=== PATIENT | female | born 1995 | race Caucasian/White ===

== ENCOUNTER 2018-05-05 21:02 | Emergency (ER) | payer OTHER ==
[~2018-05-05] VITALS: Ht 160 cm; Wt 98.0 kg
[2018-05-05 21:27] VITALS: Ht 160 cm; Wt 98.0 kg
[2018-05-05 23:18] VITALS: BP 111/64
== END 2018-05-05 23:18 | disposition home or self-care (01) ==
LOC: ED 21:02
DX: T24.012A Burn of unspecified degree of left thigh, initial encounter (principal); Y92.89 Other specified places as the place of occurrence of the external cause
CPT/HCPCS: J1885